=== PATIENT | male | born 1945 | race Caucasian/White ===

== ENCOUNTER 2020-03-01 17:42 | Observation (INO) ==
[2020-03-01] MEDS ORDERED: Naloxone 0.4 MG/ML INJ IVP PRN (20:32)
[2020-03-01] MEDS ORDERED: D5% in Water 1,000 ML IVC PRN (21:34)
[2020-03-01] MEDS ORDERED: Dextrose Gel 15 GM/37.5 ML TUBE PO PRN ×2 (21:34)
[2020-03-01] MEDS ORDERED: *HR* Dextrose 50 % in Water (Vial) 50 ML VIAL IVP PRN (21:34)
[2020-03-01] MEDS ORDERED: Ondansetron 4 MG/2 ML VIAL IVP PRN (21:35)
[2020-03-01] MEDS ORDERED: *HR* Heparin 5,000 UNIT/ML VIAL IVP PRN ×2 (21:47)
[2020-03-01] MEDS ORDERED: *HR* Heparin 5,000 UNIT/ML VIAL IVP ONE (21:47)
[2020-03-01] MEDS: Heparin 25,000UNIT/250ML 1/2NS 25,000 UNIT/250 ML IV.SOLN IVC SCH (22:18)
[2020-03-01] MEDS ORDERED: Perflutren Lipid Microsphere 1.3 ML in 0.9 % Sodium Chloride 8.7 ML IVP PRN (23:34)
[2020-03-02] MEDS: Amoxicillin 250 MG CHEWABLE TABLET PO SCH ×3 (00:36→21:34)
[2020-03-02] MEDS: Venlafaxine XR (24 HR) 37.5 MG CAP.ER.24H PO SCH ×2 (00:37→21:37)
[2020-03-02] MEDS: Insulin LISPRO 300 UNITS/3 ML VIAL SQ SCH ×5 (00:44→21:35)
[2020-03-02] MEDS: Ketorolac 15 MG/ML VIAL IVP PRN ×4 (01:02→22:19)
[2020-03-02 04:38] LABS: Hematocrit 44.7 % (37.5-50.1); Hemoglobin 14.7 g/dL (12.9-16.9); Mean Corpuscular HGB Conc 32.9 g/dL (31.6-35.5); Mean Corpuscular Hemoglobin 30.4 pg (28.0-33.3); Mean Corpuscular Volume 92.5 fL (83.0-100.0); Mean Platelet Volume 10.7 fL (9.4-12.4); Platelet Count 177 K/mcL (140-400); Red Blood Count 4.83 M/mcL (4.19-5.50); Red Cell Distribution Width 13.7 % (11.5-14.5); White Blood Count 9.1 K/mcL (4.3-11.1)
[2020-03-02 04:59] LABS: Alanine Aminotransferase 20 Units/L (7-52); Albumin 3.2 g/dL (3.5-5.7); Albumin/Globulin Ratio 1.5 (1.1-2.2); Alkaline Phosphatase 41 Units/L (34-104); Aspartate Amino Transferase 15 Units/L (13-39); BUN/Creatinine Ratio 34 (6-26); Bilirubin,Total 0.7 mg/dL (0.3-1.0); Blood Urea Nitrogen 28 mg/dL (8-23); Calcium 8.1 mg/dL (8.6-10.3); Carbon Dioxide 26 mEq/L (23-29); Chloride 107 mEq/L (98-107); Globulin 2.2 g/dL (2.4-3.5); Glucose 121 mg/dL (70-105); Magnesium 2.2 mg/dL (1.6-2.6); Osmolality,Calculated 293 (280-300); Phosphorous 2.8 mg/dL (2.7-4.5); Potassium 3.6 mEq/L (3.5-5.1); Sodium 138 mEq/L (136-145); Total Protein 5.4 g/dL (6.4-8.9); eGFR For African Americans > 60 (> 60); eGFR For Non-African Americans > 60 (> 60)
[2020-03-02 05:00] LABS: Troponin I < 0.03 ng/mL (< 0.04)
[2020-03-02 05:14] LABS: Thyroid Stimulating Hormone 1.789 mcIU/mL (0.340-5.600)
[2020-03-02] MEDS: Heparin 25,000UNIT/250ML 1/2NS 25,000 UNIT/250 ML IV.SOLN IVC SCH (15:58)
[2020-03-03 01:57] LABS: BUN/Creatinine Ratio 34 (6-26); Blood Urea Nitrogen 28 mg/dL (8-23); Calcium 8.5 mg/dL (8.6-10.3); Carbon Dioxide 23 mEq/L (23-29); Chloride 107 mEq/L (98-107); Glucose 164 mg/dL (70-105); Osmolality,Calculated 291 (280-300); Potassium 3.6 mEq/L (3.5-5.1); Sodium 136 mEq/L (136-145); eGFR For African Americans > 60 (> 60); eGFR For Non-African Americans > 60 (> 60)
[2020-03-03] MEDS ORDERED: Regadenoson 0.4 MG/5 ML SYRINGE IVP ONE (05:34)
[2020-03-03] MEDS: Insulin LISPRO 300 UNITS/3 ML VIAL SQ SCH ×4 (08:47→20:43)
[2020-03-03] MEDS ORDERED: lisinopriL 5 MG TABLET PO SCH (09:00)
[2020-03-03] MEDS: Loratadine 10 MG TABLET PO SCH (10:17)
[2020-03-03] MEDS: Amoxicillin 250 MG CHEWABLE TABLET PO SCH ×2 (10:17→20:39)
[2020-03-03] MEDS: Apixaban 5 MG TABLET PO SCH (16:41)
[2020-03-03] MEDS: 0.9 % Sodium Chloride 1,000 ML IVC SCH (16:55)
[2020-03-03] MEDS: Heparin 25,000UNIT/250ML 1/2NS 25,000 UNIT/250 ML IV.SOLN IVC SCH (17:22)
[2020-03-03] MEDS: Ketorolac 15 MG/ML VIAL IVP PRN (18:48)
[2020-03-03] MEDS: Venlafaxine XR (24 HR) 37.5 MG CAP.ER.24H PO SCH (20:41)
[2020-03-03] MEDS: lisinopriL 5 MG TABLET PO SCH (20:43)
[2020-03-04 02:12] LABS: Hematocrit 41.8 % (37.5-50.1); Hemoglobin 13.4 g/dL (12.9-16.9); Mean Corpuscular HGB Conc 32.1 g/dL (31.6-35.5); Mean Corpuscular Hemoglobin 30.3 pg (28.0-33.3); Mean Corpuscular Volume 94.6 fL (83.0-100.0); Mean Platelet Volume 10.8 fL (9.4-12.4); Platelet Count 158 K/mcL (140-400); Red Blood Count 4.42 M/mcL (4.19-5.50); Red Cell Distribution Width 13.7 % (11.5-14.5); White Blood Count 7.3 K/mcL (4.3-11.1)
[2020-03-04 02:32] LABS: BUN/Creatinine Ratio 25 (6-26); Blood Urea Nitrogen 20 mg/dL (8-23); Calcium 8.4 mg/dL (8.6-10.3); Carbon Dioxide 26 mEq/L (23-29); Chloride 109 mEq/L (98-107); Glucose 165 mg/dL (70-105); Osmolality,Calculated 292 (280-300); Sodium 138 mEq/L (136-145); eGFR For African Americans > 60 (> 60); eGFR For Non-African Americans > 60 (> 60)
[2020-03-04] MEDS: Ketorolac 15 MG/ML VIAL IVP PRN (03:36)
[2020-03-04] MEDS: Insulin LISPRO 300 UNITS/3 ML VIAL SQ SCH ×2 (08:05→12:05)
[2020-03-04] MEDS: lisinopriL 5 MG TABLET PO SCH (08:06)
[2020-03-04] MEDS: Loratadine 10 MG TABLET PO SCH (08:06)
[2020-03-04] MEDS: Apixaban 5 MG TABLET PO SCH (08:06)
[2020-03-04] MEDS: Amoxicillin 250 MG CHEWABLE TABLET PO SCH (08:06)
[2020-03-04 09:34] VITALS: BP 111/71
[2020-03-04] MEDS: 0.9 % Sodium Chloride 1,000 ML IVC SCH (12:08)
== END 2020-03-04 12:30 | disposition home or self-care (01) ==
LOC: 3BNU
PROVIDERS: ADMIT Internal Medicine; ATTEND Internal Medicine

== ENCOUNTER 2020-07-25 02:21 | Observation (INO) ==
[2020-07-25] MEDS ORDERED: Ondansetron 4 MG/2 ML VIAL IVP PRN (05:59)
[2020-07-25] MEDS ORDERED: Naloxone 0.4 MG/ML INJ IVP PRN (05:59)
[2020-07-25] MEDS ORDERED: Morphine Sulfate 2 MG/ML SYRINGE IVP PRN (06:23)
[2020-07-25] MEDS ORDERED: Nitroglycerin 0.4 MG TAB.SUBL SL PRN (06:23)
[2020-07-25] MEDS ORDERED: Dextrose Gel 15 GM/37.5 ML TUBE PO PRN ×2 (06:24)
[2020-07-25] MEDS ORDERED: D5% in Water 1,000 ML IVC PRN (06:24)
[2020-07-25] MEDS ORDERED: *HR* Dextrose 50 % in Water (Vial) 50 ML VIAL IVP PRN (06:24)
[2020-07-25 06:47] LABS: Chol/HDL Ratio 3.3 (0-4.9)
[2020-07-25] MEDS ORDERED: Insulin LISPRO 300 UNITS/3 ML VIAL SUBQ SCH (12:00)
[2020-07-25] MEDS: Apixaban 5 MG TABLET PO SCH ×2 (14:46→19:56)
[2020-07-25] MEDS ORDERED: Ipratropium/Albuterol Neb 3 ML IH PRN (14:53)
[2020-07-25] MEDS: *HR* OxyCODONE Immed Rel 5 MG TABLET PO PRN (15:58)
[2020-07-25] MEDS: Insulin LISPRO 300 UNITS/3 ML VIAL SUBQ SCH (17:18)
[2020-07-25] MEDS: Amoxicillin 250 MG CHEWABLE TABLET PO SCH (19:55)
[2020-07-25] MEDS: Baclofen 10 MG TABLET PO SCH (19:56)
[2020-07-25] MEDS ORDERED: Venlafaxine XR (24 HR) 37.5 MG CAP.ER.24H PO SCH (21:00)
[2020-07-26 03:13] LABS: Hemoglobin 13.5 g/dL (12.9-16.9); Mean Corpuscular HGB Conc 32.1 g/dL (31.6-35.5); Mean Corpuscular Hemoglobin 30.6 pg (28.0-33.3); Mean Corpuscular Volume 95.2 fL (83.0-100.0); Mean Platelet Volume 10.8 fL (9.4-12.4); Platelet Count 148 K/mcL (140-400); Red Blood Count 4.41 M/mcL (4.19-5.50); White Blood Count 6.3 K/mcL (4.3-11.1)
[2020-07-26 03:37] LABS: BUN/Creatinine Ratio 19 (6-26); Blood Urea Nitrogen 16 mg/dL (8-23); Calcium 8.7 mg/dL (8.6-10.3); Carbon Dioxide 29 mEq/L (23-29); Chloride 105 mEq/L (98-107); Glucose 103 mg/dL (70-105); Osmolality,Calculated 291 (280-300); Potassium 3.9 mEq/L (3.5-5.1); Sodium 140 mEq/L (136-145); eGFR For African Americans > 60 (> 60); eGFR For Non-African Americans > 60 (> 60)
[2020-07-26 07:16] VITALS: BP 117/75
[2020-07-26] MEDS: Insulin LISPRO 300 UNITS/3 ML VIAL SUBQ SCH (07:55)
[2020-07-26] MEDS: *HR* OxyCODONE Immed Rel 5 MG TABLET PO PRN (08:01)
[2020-07-26] MEDS: Baclofen 10 MG TABLET PO SCH (08:01)
[2020-07-26] MEDS: Apixaban 5 MG TABLET PO SCH (08:01)
[2020-07-26] MEDS: Amoxicillin 250 MG CHEWABLE TABLET PO SCH (08:04)
[2020-07-26] MEDS ORDERED: lisinopriL 5 MG TABLET PO SCH (09:00)
[2020-07-26] MEDS ORDERED: Furosemide 40 MG TABLET PO SCH (09:00)
== END 2020-07-26 12:13 | disposition home or self-care (01) ==
LOC: 3BNU → SUATTDRO 05:21
PROVIDERS: ADMIT Student in an Organized Health Care Education/Training Program; ATTEND Nurse Practitioner

== ENCOUNTER 2021-02-14 08:39 | Observation (INO) ==
[2021-02-14] MEDS ORDERED: *HR* OxyCODONE Immed Rel 5 MG TABLET PO PRN (13:11)
[2021-02-14] MEDS ORDERED: Acetaminophen 325 MG TABLET PO PRN (13:11)
[2021-02-14] MEDS ORDERED: Naloxone 0.4 MG/ML INJ IVP PRN (13:11)
[2021-02-14] MEDS ORDERED: Ondansetron 4 MG/2 ML VIAL IVP PRN (13:11)
[2021-02-14] MEDS ORDERED: Isovue-370 500 ML BOTTLE IVP ONE (13:37)
[2021-02-14] MEDS ORDERED: Morphine Sulfate 2 MG/ML SYRINGE IVP PRN (13:37)
[2021-02-14] MEDS ORDERED: Dextrose Gel 15 GM/37.5 ML TUBE PO PRN ×2 (13:39)
[2021-02-14] MEDS ORDERED: *HR* Dextrose 50 % in Water (Syg) 50 ML SYRINGE IVP PRN (13:39)
[2021-02-14] MEDS ORDERED: D5% in Water 1,000 ML IVC PRN (13:39)
[2021-02-14] MEDS ORDERED: Perflutren Lipid Microsphere 1.3 ML in 0.9 % Sodium Chloride 8.7 ML IVP PRN (14:09)
[2021-02-14] MEDS: Insulin LISPRO 300 UNITS/3 ML VIAL SUBQ SCH (16:39)
[2021-02-14] MEDS: Apixaban 5 MG TABLET PO SCH (20:13)
[2021-02-14] MEDS: *HR* HYDROcodone/Acet 5/325 mg TABLET PO PRN (20:16)
[2021-02-15 00:58] LABS: Basophils % 0.6 %; Eosinophils # 0.2 K/mcL (0.0-0.6); Eosinophils % 3.4 %; Hematocrit 44.1 % (37.5-50.1); Hemoglobin 14.1 g/dL (12.9-16.9); Immature Granulocytes % 0.8 % (0-4); Lymphocytes # 1.5 K/mcL (0.6-4.6); Lymphocytes % 23.8 %; Mean Corpuscular Hemoglobin 30.3 pg (28.0-33.3); Mean Corpuscular Volume 94.8 fL (83.0-100.0); Mean Platelet Volume 10.7 fL (9.4-12.4); Monocytes # 0.8 K/mcL (0.0-1.3); Monocytes % 12.7 %; Neutrophils # 3.8 K/mcL (1.6-8.9); Platelet Count 165 K/mcL (140-400); Red Blood Count 4.65 M/mcL (4.19-5.50); Red Cell Distribution Width 13.4 % (11.5-14.5); Segmented Neutrophils % 58.7 %; White Blood Count 6.4 K/mcL (4.3-11.1)
[2021-02-15 01:12] LABS: BUN/Creatinine Ratio 17 (6-26); Blood Urea Nitrogen 16 mg/dL (8-23); Calcium 8.9 mg/dL (8.6-10.3); Carbon Dioxide 29 mEq/L (23-29); Chloride 105 mEq/L (98-107); Glucose 117 mg/dL (70-105); Magnesium 2.2 mg/dL (1.6-2.6); Osmolality,Calculated 288 (280-300); Potassium 3.9 mEq/L (3.5-5.1); Sodium 138 mEq/L (136-145); eGFR For African Americans > 60 (> 60); eGFR For Non-African Americans > 60 (> 60)
[2021-02-15] MEDS: *HR* HYDROcodone/Acet 5/325 mg TABLET PO PRN ×2 (04:45→16:07)
[2021-02-15] MEDS: Insulin LISPRO 300 UNITS/3 ML VIAL SUBQ SCH ×3 (07:39→16:41)
[2021-02-15] MEDS: lisinopriL 20 MG TABLET PO SCH (07:39)
[2021-02-15] MEDS: Venlafaxine XR (24 HR) 37.5 MG CAP.ER.24H PO SCH (07:43)
[2021-02-15] MEDS: Apixaban 5 MG TABLET PO SCH (07:43)
[2021-02-15 08:50] LABS: Adenovirus Not Detected (Not Detect); Bordetella Pertussis Not Detected (Not Detect); Chlamydophila pneumoniae Not Detected (Not Detect); Coronavirus 229E Not Detected (Not Detect); Coronavirus HKU1 Not Detected (Not Detect); Coronavirus NL63 Not Detected (Not Detect); Coronavirus OC43 Not Detected (Not Detect); Human Metapneumovirus Not Detected (Not Detect); Human Rhinovirus/Enterovirus Not Detected (Not Detect); Influenza A Subtype 2009 H1 Not Detected (Not Detect); Influenza B Not Detected (Not Detect); Mycoplasma pneumoniae Not Detected (Not Detect); Parainfluenza Virus 1 Not Detected (Not Detect); Parainfluenza Virus 2 Not Detected (Not Detect); Parainfluenza Virus 3 Not Detected (Not Detect); Parainfluenza Virus 4 Not Detected (Not Detect); Respiratory Syncytial Virus Not Detected (Not Detect); SARS-CoV-2 Not Detected (Not Detect)
[2021-02-15] MEDS: modafiniL 100 MG TABLET PO SCH (08:59)
[2021-02-15 10:45] LABS: Albumin 4.1 g/dL (3.5-5.7); Albumin/Globulin Ratio 1.5 (1.1-2.2); Bilirubin,Direct 0.2 mg/dL (0.0-0.2); Bilirubin,Indirect 0.6 mg/dL (0.0-1.0); Bilirubin,Total 0.8 mg/dL (0.3-1.0); Globulin 2.8 g/dL (2.4-3.5); Total Protein 6.9 g/dL (6.4-8.9)
[2021-02-15] MEDS: Ranolazine 500 MG TAB.ER.12H PO SCH ×2 (12:47→20:50)
[2021-02-16] MEDS: *HR* HYDROcodone/Acet 5/325 mg TABLET PO PRN ×2 (00:02→11:39)
[2021-02-16] MEDS: Insulin LISPRO 300 UNITS/3 ML VIAL SUBQ SCH ×2 (06:50→11:57)
[2021-02-16] MEDS: Ranolazine 500 MG TAB.ER.12H PO SCH (08:33)
[2021-02-16] MEDS: Venlafaxine XR (24 HR) 37.5 MG CAP.ER.24H PO SCH (08:33)
[2021-02-16] MEDS: lisinopriL 20 MG TABLET PO SCH (08:33)
[2021-02-16] MEDS ORDERED: 0.9 % Sodium Chloride 2,000 ML ONE (09:58)
[2021-02-16] MEDS ORDERED: Heparin 1,000 UNITS/500 mL 500 ML ONE (09:58)
[2021-02-16] MEDS ORDERED: ISOVUE-370 200 ML INFUS..BTL ONE (09:58)
[2021-02-16] MEDS ORDERED: *HR* Heparin 10,000 UNIT/10 ML VIAL ONE (09:58)
[2021-02-16] MEDS ORDERED: Nitroglycerin 1,000 MCG/5 ML VIAL IV ONE ×2 (09:58→09:59)
[2021-02-16] MEDS ORDERED: Heparin 1,000 UNITS/500 mL 0 ML ONE (10:01)
[2021-02-16 10:03] LABS: Basophils % 0.5 %; Eosinophils # 0.2 K/mcL (0.0-0.6); Eosinophils % 2.4 %; Immature Granulocytes % 1.1 % (0-4); Lymphocytes # 1.2 K/mcL (0.6-4.6); Lymphocytes % 15.3 %; Mean Corpuscular HGB Conc 32.9 g/dL (31.6-35.5); Mean Corpuscular Hemoglobin 30.7 pg (28.0-33.3); Mean Corpuscular Volume 93.2 fL (83.0-100.0); Mean Platelet Volume 10.9 fL (9.4-12.4); Monocytes # 0.8 K/mcL (0.0-1.3); Monocytes % 10.9 %; Neutrophils # 5.3 K/mcL (1.6-8.9); Platelet Count 201 K/mcL (140-400); Red Blood Count 5.15 M/mcL (4.19-5.50); Red Cell Distribution Width 13.2 % (11.5-14.5); Segmented Neutrophils % 69.8 %; White Blood Count 7.6 K/mcL (4.3-11.1)
[2021-02-16 10:04] LABS: Hemoglobin 15.8 g/dL (12.9-16.9)
[2021-02-16] MEDS ORDERED: *HR* FentaNYL (PF) 100 MCG/2 ML VIAL ONE (10:07)
[2021-02-16] MEDS ORDERED: *HR* Midazolam HCl 2 MG/2 ML VIAL ONE (10:07)
[2021-02-16 10:19] LABS: BUN/Creatinine Ratio 21 (6-26); Blood Urea Nitrogen 21 mg/dL (8-23); Calcium 9.1 mg/dL (8.6-10.3); Carbon Dioxide 31 mEq/L (23-29); Chloride 102 mEq/L (98-107); Glucose 142 mg/dL (70-105); Osmolality,Calculated 289 (280-300); Potassium 4.2 mEq/L (3.5-5.1); Sodium 137 mEq/L (136-145); eGFR For African Americans > 60 (> 60); eGFR For Non-African Americans > 60 (> 60)
[2021-02-16] MEDS: modafiniL 100 MG TABLET PO SCH (11:39)
[2021-02-16 14:40] VITALS: BP 124/75; PULSE 65; TEMP 98.1; O2SAT 93
[2021-02-16] MEDS ORDERED: Apixaban 5 MG TABLET PO SCH (21:00)
== END 2021-02-16 15:44 | disposition home or self-care (01) ==
LOC: 3ANU → SUATTDRO 12:38
PROVIDERS: ADMIT Pharmacist; ATTEND Internal Medicine